=== PATIENT | female | born 1955 | race Caucasian/White ===

== ENCOUNTER 2021-01-25 10:16 | Outpatient (CLI) | payer OTHER, MEDICARE ==
[2021-01-25] MEDS ORDERED: FENTANYL PF 100 MCG/2ML ONE (12:16)
[2021-01-25] MEDS ORDERED: MIDAZOLAM 1 MG/ML, 5ML ONE (12:17)
== END 2021-01-25 23:59 | disposition home or self-care (01) ==
LOC: RAD 10:16
PROVIDERS: ATTEND Nurse Practitioner Family
DX: G44.89 Other headache syndrome (principal); I10 Essential (primary) hypertension; E11.9 Type 2 diabetes mellitus without complications; Z91.041 Radiographic dye allergy status
CPT/HCPCS: 70551; 99156; 99157; J2250; J3010